=== PATIENT | female | born 1965 | race Caucasian/White ===

== ENCOUNTER 2018-02-27 12:05 | Emergency (ER) | payer OTHER ==
--- NOTE | 2018-02-27 12:20 | ED Physician Documentation ---
History of Present Illness - Stated complaint Stated Complaint: FACIAL PX - Chief complaint Chief Complaint: Heent - History obtained from History obtained from: Patient, Family - History of Present Illness Timing: How many days ago (3) Pain level max: 0 Pain level now: 0 Improved by: flexeril Worsened by: nothing - Additonal information Additional information: Patient is a 52 year old female, presents with R sided facial numbness and tingling and R sided neck swelling x 3-4 days. States has had R arm tingling today. Has had headaches intermittently for the past several weeks. States feels like her normal tension headache. Took flexeril which helped the headache and the facial symptoms. Review of Systems Constitutional: denies: Fever, Chills Eyes: denies: Decreased vision, Photophobia Ears: denies: Ear pain Nose: denies: Rhinorrhea / runny nose, Congestion Throat: denies: Sore throat Cardiac: denies: Chest pain / pressure Respiratory: denies: Cough GI: denies: Abdominal Pain, Nausea, Diarrhea : denies: Dysuria Skin: denies: Rash Musculoskeletal: denies: Neck pain, Back pain Neurologic: denies: Focal weakness, Confused, Altered mental status PD PAST MEDICAL HISTORY - Past Medical History Past Medical History: Yes Cardiovascular: Hypertension Neuro: Headache/migraine - Present Medications Home Medications: Ambulatory Orders Medication Instructions Recorded Confirmed Cetirizine HCl 02/27/18 Triamterene/Hydrochlorothiazid 02/27/18 [Triamterene-Hctz 50-25 mg Cap] - Allergies Allergies/Adverse Reactions: Allergies Allergy/AdvReac Type Severity Reaction Status Date / Time Penicillins Allergy Unknown Verified 02/27/18 12:14 PD ED PE NORMAL - Vitals Vital signs reviewed: Yes - General General: Alert and oriented X 3, No acute distress - HEENT HEENT: Atraumatic, PERRL, EOMI, Ears normal, Moist mucous membranes, Pharynx benign - Neck Neck: Supple, no meningeal sign, No bony TTP, No JVD, No bruit - Cardiac Cardiac: RRR, Strong equal pulses - Respiratory Respiratory: No respiratory distress, Clear bilaterally - Abdomen Abdomen: Soft, Non tender, Non distended - Derm Derm: Warm and dry - Neuro Neuro: Alert and oriented X 3, No motor deficit, Other (decreased sensation C6 dermatome, mild. Mild decreased sensation V2) - Psych Psych: Normal mood, Normal affect Results - Vitals Vitals: Vital Signs - 24 hr 02/27/18 02/27/18 12:10 14:44 Temperature 36.5 C 36.6 C Heart Rate 77 75 Respiratory 18 16 Rate Blood Pressure 153/97 H 131/89 H O2 Saturation 100 100 Oxygen O2 Source Room air - EKG (time done) 1257 Rate: Rate (enter#) (80) Rhythm: NSR Jeannette: Normal Intervals: Normal NE QRS: LVH Ischemia: Normal ST segments Computer interpretation: Agree with computer - Labs Labs: Laboratory Tests 02/27/18 02/27/18 12:48 12:48 WBC 8.7 RBC 4.87 Hgb 14.3 Hct 42.5 MCV 87.2 MCH 29.4 MCHC 33.7 RDW 13.3 Plt Count 270 MPV 8.1 Neut # 5.5 Lymph # 2.4 [place] # 0.6 Eos # 0.1 Baso # 0.0 Absolute Nucleated RBC 0.00 Nucleated RBC % 0.0 Sodium 137 Potassium 3.8 Chloride 101 Carbon Dioxide 28 Anion Gap 8.0 BUN 18 Creatinine < 0.3 L Estimated GFR (MDRD) 235 Glucose 100 Calcium 9.3 Phosphorus 3.4 Magnesium 2.0 Total Bilirubin 0.3 AST 14 ALT 19 Alkaline Phosphatase 43 Total Protein 7.7 Albumin 4.2 Globulin 3.5 Albumin/Globulin Ratio 1.2 Lipase 21 L - Rads (name of study) CT angio head Radiology: Prelim report reviewed, EMP read contemporaneously, See rad report ( No acute infarct, hemorrhage, mass, hydrocephalus, or abnormal postcontrast enhancement. No large vessel occlusion. No intracranial aneurysm, stenonsis or vascular malformation.) CT angio neck Radiology: Prelim report reviewed, EMP read contemporaneously, See rad report ( No dissection, pseudoaneurysm, or high-grade stenosis. ) PD MEDICAL DECISION MAKING - ED course Complexity details: reviewed results, re-evaluated patient, considered differential, d/w patient, d/w family ED course: Patient is a 52-year-old female who presents to the emergency department with right-sided facial paresthesias as well as right arm paresthesias that started today. The facial paresthesias started a few days ago. The right arm paresthesia seems to be in the C6 dermatome distribution. No acute findings on laboratory testing, EKG or CT angiogram of the head and neck. No evidence of stroke. Will have her follow-up closely with her doctor for further evaluation and care. She is well-appearing, nontoxic. Patient counseled regarding signs and symptoms for which I believe and urgent re-evaluation would be necessary. Patient with good understanding of and agreement to plan and is comfortable going home at this time This document was made in part using voice recognition software. While efforts are made to proofread this document, sound alike and grammatical errors may occur. Departure - Departure Disposition: 01 Home, Self Care Clinical Impression: Paresthesia Condition: Good Instructions: ED Paraesthesias Follow-Up: MAYRA HICKEY MD [Primary Care Provider] - Within 1 week Comments: Your tests are normal today including the CT and CT angiogram of your head and neck. No evidence of stroke, tumor, mass or dissection/aneurysm of your arteries. Continue your Motrin as needed at home and follow-up with your doctor. Return if you worsen. NIHSS - Time Time: 12:20 - Level of Consciousness Level of consciousness: (0) Alert, Keenly responsive LOC Questions: (0) Answers both Q's correct LOC Commands: (0) Performs both correctly - Gaze Best Gaze: (0) Normal - Visual Visual: (0) No loss - Facial Palsy Facial Palsy: (0) Normal, symmetrical movement - Motor Arms (both separate) Motor Arm (right): (0) No drift Motor Arm (left): (0) No drift - Motor Legs (both separate) Motor Leg (right): (0) No drift Motor Leg (left): (0) No drift - Limb Ataxia Limb Ataxia: (0) Absent - Sensory Sensory: (1) [id number] loss - Best Language Best Language: (0) No aphasia - Dysarthria Dysarthria: (0) Normal - Extinction and Inattention (formally neg Extinction and inattention: (0) No abnormality - Total Score/Results Total Score/Result: 1
[2018-02-27 13:02] LABS: BASOPHILS % (AUTO) 0.4 %; EOSINOPHILS # (AUTO) 0.1 10^3/uL (0.0-0.7); EOSINOPHILS % (AUTO) 1.6 %; HGB - HEMOGLOBIN 14.3 g/dL (12.0-16.0); LYMPHOCYTES # (AUTO) 2.4 10^3/uL (1.5-3.5); LYMPHOCYTES % (AUTO) 27.9 %; MEAN CORPUSCULAR HEMOGLOBIN 29.4 pg (27.0-31.0); MEAN CORPUSCULAR HGB CONC 33.7 g/dL (32.0-36.0); MEAN CORPUSCULAR VOLUME 87.2 fL (81.0-99.0); MEAN PLATELET VOLUME 8.1 fL (7.9-10.8); MONOCYTES # (AUTO) 0.6 10^3/uL (0.0-1.0); MONOCYTES % (AUTO) 6.9 %; NEUTROPHILS # (AUTO) 5.5 10^3/uL (1.5-6.6); NEUTROPHILS % (AUTO) 63.2 %; PLT - PLATELET COUNT 270 10^3/uL (130-450); RED BLOOD COUNT 4.87 10^6/uL (4.20-5.40); RED CELL DISTRIBUTION WIDTH 13.3 % (12.0-15.0); WHITE BLOOD COUNT 8.7 x10^3/uL (4.8-10.8)
[2018-02-27 13:15] LABS: ALBUMIN 4.2 g/dL (3.2-5.5); ALBUMIN/GLOBULIN RATIO 1.2 (1.0-2.2); ALKALINE PHOSPHATASE 43 IU/L (42-121); ALT ALANINE AMINOTRANSFERASE 19 IU/L (10-60); AST ASPARTATE AMINOTRANSFERASE 14 IU/L (10-42); BILIRUBIN,TOTAL 0.3 mg/dL (0.2-1.0); BUN - BLOOD UREA NITROGEN 18 mg/dL (6-20); CALCIUM 9.3 mg/dL (8.5-10.3); CARBON DIOXIDE - CO2 28 mmol/L (21-32); CHLORIDE 101 mmol/L (101-111); CREATININE < 0.3 mg/dL (0.4-1.0); GFR - MDRD 235 (>89); GLUCOSE 100 mg/dL (70-100); LIPASE 21 U/L (22-51); PHOSPHORUS 3.4 mg/dL (2.5-4.6); SODIUM 137 mmol/L (135-145); TOTAL PROTEIN 7.7 g/dL (6.7-8.2)
[2018-02-27] MEDS ORDERED: IOPAMIDOL-300 100 ML VIAL ONE (13:28)
[2018-02-27] MEDS ORDERED: IOPAMIDOL-300 100 ML VIAL IVP ONE ×2 (13:54)
[2018-02-27 14:45] VITALS: BP 131/89
--- NOTE | 2018-02-27 15:05 | CT Preliminary Report ---
Exam: CT HEAD ANGIO IMPRESSION: CT HEAD 1. No acute infarct, hemorrhage, mass, hydrocephalus, or abnormal postcontrast enhancement. CTA NECK 1. No dissection, pseudoaneurysm, or high-grade stenosis. CTA HEAD 1. No large vessel occlusion. 2. No intracranial aneurysm, stenosis, or vascular malformation. [facility] SITE ID: [id number]
--- NOTE | 2018-02-27 15:06 | CT Report ---
EXAM: CT ANGIOGRAM HEAD AND NECK. CT SCAN HEAD WITHOUT AND WITH CONTRAST. EXAM DATE:02/27/2018 01:54 PM. CLINICAL HISTORY:52-year-old with right-sided facial and arm tingling COMPARISON:None. TECHNIQUE: Routine axial helical CTA imaging was performed from the aortic arch through the [place]. Routine axial CT imaging of the head was performed prior to and following contrast administr ation. Reconstructions: Routine multiplanar 3D MIP reconstructions. IV contrast: 80 cc Isovue 300. NASCET Criteria are used for stenosis measurements. In accordance with CT protocol optimization, one or more of the following dose reduction techniques w ere utilized for this exam: automated exposure control, adjustment of mA and/or KV based on patient s ize, or use of iterative reconstructive technique. FINDINGS: NON-CONTRAST HEAD: Parenchyma: No evidence of acute infarct, hemorrhage, or mass lesion. Brain parenchyma demonstrates n ormal appearance. Extra-axial Spaces: Normal. No extra-axial fluid collections or hemorrhage. Ventricles: The ventricles appear age-appropriate without evidence of hydrocephalus. No intraventricu lar hemorrhage. Orbits and Sinuses: Orbits are normal. Small to moderate right maxillary mucosal retention cyst versu s polyp. Mastoid air cells and middle ear cavities are clear. Extracranial Soft Tissues and Bones: Extracranial soft tissues are unremarkable. No fractures. Other: None. CT ANGIOGRAM HEAD AND NECK: Normal three-vessel takeoff of the great vessels. RIGHT: Common Carotid Artery: Patent without significant stenosis. Carotid Bulb: There is mild atherosclerotic plaque at the bifurcation and siphon. Stenosis at the bif urcation by NASCET criteria: No significant stenosis. Internal Carotid Artery: No evidence of dissection. No evidence of aneurysm along the intracranial IC A. External Carotid Artery: Unremarkable. Vertebral Artery: Patent without significant stenosis. No evidence of dissection. Anterior Cerebral Artery: Patent without significant stenosis, aneurysm, or vascular malformation. Middle Cerebral Artery: Patent without significant stenosis, aneurysm, or vascular malformation. Posterior Cerebral Artery: Hypoplastic P1 segment with normal-appearing P2 segment and distal title coordinator du e to prominent posterior communicating artery. Posterior Communicating Artery: Patent. No aneurysm. LEFT: Common Carotid Artery: Patent without significant stenosis. Carotid Bulb: There is mild atherosclerotic plaque at the bifurcation and siphon. Stenosis at the bif urcation by NASCET criteria: No significant stenosis. Internal Carotid Artery: No evidence of dissection. No evidence of aneurysm along the intracranial IC A. External Carotid Artery: Unremarkable. Vertebral Artery: Patent without significant stenosis. No evidence of dissection. Anterior Cerebral Artery: Patent without significant stenosis, aneurysm, or vascular malformation. Middle Cerebral Artery: Patent without significant stenosis, aneurysm, or vascular malformation. Posterior Cerebral Artery: [employer]. No aneurysm. Posterior Communicating Artery: Patent. No aneurysm. CENTRAL: Anterior Communicating Artery: Patent. No aneurysm. 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 No aneurysm. DURAL VENOUS SINUSES AND MAJOR CENTRAL VEINS: Patent. OTHER: Punctate calcifications are seen within the tonsillar pillars likely representing tonsilloliths. Othe rwise the visualized pharynx and larynx appear normal. Major salivary glands appear normal. Enlarged right thyroid lobe with hypodensity seen measuring up to 3.1 cm evident on series 2, image 1 49). Enlarged right thyroid lobe with hypodensity seen measuring up to 2.7 cm (series 2, image 131). No cervical lymphadenopathy or necrotic lymph nodes seen. Soft tissues of the neck appear normal. Visualized lung apices are clear. No acute fracture or traumatic subluxation of the cervical spine. Multilevel degenerative changes. No suspicious osseous lesion. POST-CONTRAST HEAD: No abnormal enhancement. IMPRESSION: CT HEAD 1. No acute infarct, hemorrhage, mass, hydrocephalus, or abnormal postcontrast enhancement. CTA NECK 1. No dissection, pseudoaneurysm, or high-grade stenosis. CTA HEAD 1. No large vessel occlusion. 2. No intracranial aneurysm, stenosis, or vascular malformation. [facility] Referring Provider Line: [phone] SITE ID: [id number]
--- NOTE | 2018-02-27 15:06 | CT Report ---
EXAM: CT ANGIOGRAM HEAD AND NECK. CT SCAN HEAD WITHOUT AND WITH CONTRAST. EXAM DATE:02/27/2018 01:54 PM. CLINICAL HISTORY:52-year-old with right-sided facial and arm tingling COMPARISON:None. TECHNIQUE: Routine axial helical CTA imaging was performed from the aortic arch through the [place]. Routine axial CT imaging of the head was performed prior to and following contrast administr ation. Reconstructions: Routine multiplanar 3D MIP reconstructions. IV contrast: 80 cc Isovue 300. NASCET Criteria are used for stenosis measurements. In accordance with CT protocol optimization, one or more of the following dose reduction techniques w ere utilized for this exam: automated exposure control, adjustment of mA and/or KV based on patient s ize, or use of iterative reconstructive technique. FINDINGS: NON-CONTRAST HEAD: Parenchyma: No evidence of acute infarct, hemorrhage, or mass lesion. Brain parenchyma demonstrates n ormal appearance. Extra-axial Spaces: Normal. No extra-axial fluid collections or hemorrhage. Ventricles: The ventricles appear age-appropriate without evidence of hydrocephalus. No intraventricu lar hemorrhage. Orbits and Sinuses: Orbits are normal. Small to moderate right maxillary mucosal retention cyst versu s polyp. Mastoid air cells and middle ear cavities are clear. Extracranial Soft Tissues and Bones: Extracranial soft tissues are unremarkable. No fractures. Other: None. CT ANGIOGRAM HEAD AND NECK: Normal three-vessel takeoff of the great vessels. RIGHT: Common Carotid Artery: Patent without significant stenosis. Carotid Bulb: There is mild atherosclerotic plaque at the bifurcation and siphon. Stenosis at the bif urcation by NASCET criteria: No significant stenosis. Internal Carotid Artery: No evidence of dissection. No evidence of aneurysm along the intracranial IC A. External Carotid Artery: Unremarkable. Vertebral Artery: Patent without significant stenosis. No evidence of dissection. Anterior Cerebral Artery: Patent without significant stenosis, aneurysm, or vascular malformation. Middle Cerebral Artery: Patent without significant stenosis, aneurysm, or vascular malformation. Posterior Cerebral Artery: Hypoplastic P1 segment with normal-appearing P2 segment and distal pocket secretary assembler du e to prominent posterior communicating artery. Posterior Communicating Artery: Patent. No aneurysm. LEFT: Common Carotid Artery: Patent without significant stenosis. Carotid Bulb: There is mild atherosclerotic plaque at the bifurcation and siphon. Stenosis at the bif urcation by NASCET criteria: No significant stenosis. Internal Carotid Artery: No evidence of dissection. No evidence of aneurysm along the intracranial IC A. External Carotid Artery: Unremarkable. Vertebral Artery: Patent without significant stenosis. No evidence of dissection. Anterior Cerebral Artery: Patent without significant stenosis, aneurysm, or vascular malformation. Middle Cerebral Artery: Patent without significant stenosis, aneurysm, or vascular malformation. 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 No aneurysm. Posterior Communicating Artery: Patent. No aneurysm. CENTRAL: Anterior Communicating Artery: Patent. No aneurysm. 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 No aneurysm. DURAL VENOUS SINUSES AND MAJOR CENTRAL VEINS: Patent. OTHER: Punctate calcifications are seen within the tonsillar pillars likely representing tonsilloliths. Othe rwise the visualized pharynx and larynx appear normal. Major salivary glands appear normal. Enlarged right thyroid lobe with hypodensity seen measuring up to 3.1 cm evident on series 2, image 1 49). Enlarged right thyroid lobe with hypodensity seen measuring up to 2.7 cm (series 2, image 131). No cervical lymphadenopathy or necrotic lymph nodes seen. Soft tissues of the neck appear normal. Visualized lung apices are clear. No acute fracture or traumatic subluxation of the cervical spine. Multilevel degenerative changes. No suspicious osseous lesion. POST-CONTRAST HEAD: No abnormal enhancement. IMPRESSION: CT HEAD 1. No acute infarct, hemorrhage, mass, hydrocephalus, or abnormal postcontrast enhancement. CTA NECK 1. No dissection, pseudoaneurysm, or high-grade stenosis. CTA HEAD 1. No large vessel occlusion. 2. No intracranial aneurysm, stenosis, or vascular malformation. [facility] Referring Provider Line: [phone] SITE ID: [id number]
--- NOTE | 2018-02-27 15:06 | CT Preliminary Report ---
Exam: CT NECK ANGIO IMPRESSION: CT HEAD 1. No acute infarct, hemorrhage, mass, hydrocephalus, or abnormal postcontrast enhancement. CTA NECK 1. No dissection, pseudoaneurysm, or high-grade stenosis. CTA HEAD 1. No large vessel occlusion. 2. No intracranial aneurysm, stenosis, or vascular malformation. [facility] SITE ID: [id number]
== END 2018-02-27 15:23 | disposition home or self-care (01) ==
LOC: ED 12:05
DX: R20.2 Paresthesia of skin (principal); I10 Essential (primary) hypertension
CPT/HCPCS: 36415; 70496; 70498; 80053; 83690; 83735; 84100; 85025; 93005; 99283; Q9967

== ENCOUNTER 2024-07-23 11:09 | Day surgery (SDC) | payer OTHER ==
[2024-07-23] MEDS: LACTATED RINGERS 1,000 ML IV ONE (11:41)
--- NOTE | 2024-07-23 13:18 | HISTORY & PHYSICAL EXAMINATION ---
Chief Complaint - Chief Complaint Chief Complaint: here for colonoscopy History of Present Illness - History Obtained From Records Reviewed: yes History obtained from: pt Exam Limitations: none - History of Present Illness HPI Comment/Other: first time colon ca screening. no gi symptoms and no fhx. recent labs normal History - Past Medical History Cardiovascular: reports: Hypertension Respiratory: reports: Sleep apnea, CPAP use GI: reports: None BARTENDER MANAGER: reports: Fibroids : reports: None Psych: reports: Depression Musculoskeletal: reports: Osteoarthritis, Chronic back pain MRSA Hx?: No - Past Surgical History /BARTENDER MANAGER: reports: Other Meds/Allgy - Home Medications Home Medications: Ambulatory Orders Medication Instructions Recorded Confirmed Cetirizine HCl 10 mg PO DAILY 02/27/18 07/23/24 Triamterene/Hydrochlorothiazid 1 tab PO DAILY 02/27/18 07/23/24 [Triamterene-Hctz 50-25 mg Cap] Citalopram Hydrobromide [Celexa] 20 mg PO DAILY 07/22/24 07/23/24 - Allergies Allergies/Adverse Reactions: Allergies Allergy/AdvReac Type Severity Reaction Status Date / Time Penicillins Allergy Unknown Verified 02/27/18 12:14 Sulfa (Sulfonamide Allergy Hives Verified 07/22/24 14:08 Antibiotics) Review of Systems - Other Findings Other Findings: 10 pt ros as above otherwise unremarkable Exam - Vital Signs Reviewed Vital Signs: Yes Vital Signs: Vital Signs x48h Temp Pulse Resp BP Pulse Ox 07/23/24 11:31 36.5 C 73 18 160/98 H 100 - Physical Exam General Appearance: positive: No acute distress, Alert Eyes Bilateral: positive: PERRL, EOMI ENT: positive: No signs of dehydration Neck: positive: No JVD, Trachea midline Respiratory: positive: No respiratory distress Cardiovascular: positive: Regular rate & rhythm Abdomen: positive: No distention Neurologic/Psychiatric: positive: Oriented x3 Conclusion/Plan - Problem List (1) Colon cancer screening Conclusion/Plan: plan colonoscopy. parq held and consent obtained
[2024-07-23] MEDS ORDERED: PROPOFOL 500 MG/50 ML 500 MG/50 ML VIAL ONE (13:32)
[2024-07-23] MEDS ORDERED: GLYCOPYRROLATE 1 MG/5 ML VIAL ONE (13:47)
[2024-07-23] MEDS ORDERED: PROPOFOL 200 MG/20 ML VIAL IVP ONE (14:16)
[2024-07-23] MEDS: LACTATED RINGERS 300 ML IV ONE ×2 (14:19→15:04)
--- NOTE | 2024-07-23 14:28 | ANESTHESIA ---
Pre-Anesthesia VS, & Labs - Diagnosis screening - Procedure colonoscopy Vital Signs: Temp Pulse Resp BP Pulse Ox O2 Flow Rate 36.5 C 73 18 160/98 H 100 07/23/24 11:31 07/23/24 11:31 07/23/24 11:31 07/23/24 11:31 07/23/24 11:31 Height: 5 ft 7 in Weight (kg): 110 kg Body Mass Index: 38.0 BMI Classification: Obese - NPO >8 hours - Is Patient ?: No Home Medications and Allergies Home Medications: Ambulatory Orders Citalopram Hydrobromide [Celexa] 20 mg PO DAILY 07/22/24 Cetirizine HCl 10 mg PO DAILY 02/27/18 Triamterene/Hydrochlorothiazid [Triamterene-Hctz 50-25 mg Cap] 1 tab PO DAILY 02/27/18 Citalopram Hydrobromide [Celexa] 20 mg PO DAILY 07/22/24 Allergies/Adverse Reactions: Allergies Allergy/AdvReac Type Severity Reaction Status Date / Time Penicillins Allergy Unknown Verified 02/27/18 12:14 Sulfa (Sulfonamide Allergy Hives Verified 07/22/24 14:08 Antibiotics) Anes History & Medical History - Anesthetic History Anesthesia Complications: reports: No previous complications Family history of Anesthesia Complications: Denies Family history of Malignant Hyperthermia: Denies - Medical History Cardiovascular: reports: Hypertension Pulmonary: reports: Sleep apnea, CPAP use Gastrointestinal: reports: None Urinary: reports: None Musculoskeletal: reports: Osteoarthritis, Chronic back pain Smoking Status: Never smoker Psychosocial: reports: Alcohol History of Cancer?: No - Surgical History Gynecologic: reports: Other Exam General: Alert, Oriented x3, Cooperative Dental: WNL Mouth Openin Fingerbreadth Respiratory: Lungs clear Cardiovascular: Regular rate Plan Anesthesia Type: Total IV Consent for Procedure(s) Verified and Reviewed: Yes Code Status: Attempt Resuscitation ASA classification: 3-Severe systemic disease Is this case an emergency?: No
[2024-07-23 15:06] VITALS: BP 119/88; O2SAT 98
--- NOTE | 2024-07-23 15:28 | ANESTHESIA POST OP EVALUATION ---
Anesthesia Post Eval - Post Anesthesia Eval Vitals: Last Vital Signs Temp 36.0 C L 07/23/24 14:34 Pulse 56 L 07/23/24 14:55 Resp 16 07/23/24 14:55 BP 119/88 H 07/23/24 14:55 Pulse Ox 98 07/23/24 14:55 O2 Flow Rate CV Function Including HR & BP: Stable Pain Control: Satisfactory Nausea & Vomiting: Negative Mental Status: Baseline Respiratory Status: Airway Patent Hydration Status: Satisfactory Anesthesia Complications: None
== END 2024-07-23 11:10 | disposition home or self-care (01) ==
LOC: SDS 11:09
PROVIDERS: ATTEND Surgery
PROC: 0DBC8ZX Excision of Ileocecal Valve, Via Natural or Artificial Opening Endoscopic, Diagnostic (ICD-10-PCS; principal; 2024-07-23 12:30)
DX: Z12.11 Encounter for screening for malignant neoplasm of colon (principal); D17.79 Benign lipomatous neoplasm of other sites; K57.30 Diverticulosis of large intestine without perforation or abscess without bleeding; E66.9 Obesity, unspecified; Z68.38 Body mass index [BMI] 38.0-38.9, adult; G47.30 Sleep apnea, unspecified; I10 Essential (primary) hypertension
CPT/HCPCS: 45380; J7120